=== PATIENT | female | born 1960 | race Caucasian/White ===

== ENCOUNTER 2018-09-18 15:49 | Emergency (ER) | payer OTHER ==
[2018-09-18 16:02] VITALS: BP 144/79
[2018-09-18] MEDS ORDERED: Tetan/Diph/Pertus SYR(Tdap)* 0.5 ML SYR(BOOSTRIX) use SYR IM ONE (16:24)
--- NOTE | 2018-09-18 16:26 | UC ---
Laceration HPI - HPI Summary HPI Summary: 58 y/o female presents to the urgent care c/o cutting her left ring finger w/ pruning naomi while cutting some plants at home around 1515pm. Pt reports bleeding stopped with pressure. She can move finger w/o any problem. Pt is not sure when was the last Tetanus vaccines. Pt denies any numbness or tingling sensation over the left finger or hand. Pt dnies fever, SOB, chest pain, abdominal pain, N/V/d. - History Of Current Complaint Chief Complaint: UCLaceration Stated Complaint: FINGER LAC Time Seen by Provider: 09/18/18 16:23 Hx Obtained From: Patient Laceration Location: Finger - left finger laceration w/ pruning naomi Mechanism Of Injury: Sharp Trauma Onset/Duration: Lasting Hours - 1 hr ago, Still Present Severity: Severe Pain Intensity: 8 Pain Scale Used: 0-10 Numeric Aggravating Factors: Movement, Other: - touch Related History: Dominant Hand Right - Allergies/Home Medications Allergies/Adverse Reactions: Allergies Allergy/AdvReac Type Severity Reaction Status Date / Time loracarbef [From Lorabid] Allergy Unknown Verified 09/18/18 16:02 Reaction Details PMH/Surg Hx/FS Hx/Imm Hx Previously Healthy: Yes - Pt denies PMHX Other History Of: Negative For: Anticoagulant Therapy - Surgical History Surgical History: Yes Surgery Procedure, Year, and Place: [facility] - Family History Known Family History: Positive: Diabetes, Respiratory Disease - PNA- daughter Negative: Cardiac Disease - Social History Occupation: Employed Full-time Lives: With Family Alcohol Use: Occasionally Substance Use Type: None Smoking Status (MU): Former Smoker Type: Cigarettes Have You Smoked in the Last Year: Yes When Did the Patient Quit Smoking/Using Tobacco: 5 days ago Household Exposure Type: Cigarettes - Immunization History Most Recent Tetanus Shot: not sure Hx Tetanus, Diphtheria Vaccination: No - not sure Review of Systems All Other Systems Reviewed And Are Negative: Yes Skin: Positive: Other - laceration to his distal ring finger with pruning naomi Eyes: Positive: Negative ENT: Positive: Negative Respiratory: Positive: Negative Cardiovascular: Positive: Negative Gastrointestinal: Positive: Negative Genitourinary: Positive: Negative Motor: Positive: Negative Neurovascular: Positive: Negative Musculoskeletal: Positive: Other: - left ring finger pain Neurological: Positive: Negative Psychological: Positive: Negative Is Patient Immunocompromised?: No Physical Exam - Summary Physical Exam Summary: Vital Signs Reviewed: Yes General: well developed, well nourished female sitting in the examining table w/ o any apparent distress Eye Exam: Normal Eyes: Positive: Conjunctiva Clear - PERRLA, EOMI, fundi grossly normal ENT: Positive: Normal ENT inspection, Hearing grossly normal, Pharynx normal, TMs normal Neck: Positive: Supple, Nontender, No Lymphadenopathy Respiratory: Positive: Chest non-tender, Lungs clear, Normal breath sounds, No respiratory distress Cardiovascular: Positive: RRR, No Murmur, Pulses Normal, Brisk Capillary Refill Abdomen Description: Positive: Nontender, No Organomegaly, Soft. Negative: CVA Tenderness (R), CVA Tenderness (L) Bowel Sounds: Positive: Present Musculoskeletal: Positive: Strength Intact, ROM Intact, No Edema Neurological: Positive: Alert, Muscle Tone Normal Psychological Exam: Normal Skin: Positive:ventral side of the left 4th distal phalanx with a semilunar superficial laceration about 1.0cm in size, non bleeding, no foreign body observed. mild tenderness to palpation, no ecchymosis around elbow. FROM of the left fingers and hand, sensation intact, capillary refill brisk, and pulses WNL. Triage Information Reviewed: Yes Vital Signs: Initial Vital Signs Temp 97.1 F 09/18/18 16:00 Pulse 74 09/18/18 16:00 Resp 16 09/18/18 16:00 BP 144/79 09/18/18 16:00 Pulse Ox 98 09/18/18 16:00 Laceration Repair - Laceration Repair 1 Description: Linear - semilunar laceration on the ventral side of the distal left 4th phalanx Laceration Size After Repair: Length (cm) - 1.0cm Modified For Repair: No Type Injection: Local Anesthesia Used: 1.0% Lido - 2 ml by digitsl block at the base to the left 4th phalanx Cleansing Completed Via Routine Prep: Yes Irrigation With Pressure Irrigation Device: Yes Closure Material: Sutures - 4 Closure Method: Single Layer Suture Of: Skin, SQ Suture Type: Nylon - 5.0 Laceration Course/Dx - Course/Dx Course Of Treatment: 58 y/o female presents to the urgent care c/o cutting her left ring finger w/ pruning naomi while cutting some plants at home around 1515pm. Pt reports bleeding stopped with pressure. She can move finger w/o any problem. Pt is not sure when was the last Tetanus vaccines. Pt denies any numbness or tingling sensation over the left finger or hand. Pt dnies fever, SOB , chest pain,abdominal pain, N/V/D. Hx obtained. Pt w/ ventral side of the left 4th distal phalanx with a semilunar superficial laceration about 1.0cm in size, non bleeding, no foreign body observed. FROM of the left phalanx on examination. LACERATION PROCEDURE NOTE: . Copious irrigation was done with saline by the nurse and the wound explored. There was no FB or deep structure injury noted. FROM of left forearm. procedure was explained and consent obtained, Timeout performed. The wound was anesthetized by digital block with 2 mL of 1% lido at the base of left 4th phalanx, with good anesthesia obtained. Sterile drape and prep were done. There were 4 sutures with 5.0 nylon type of suture. The length of the wound after closure was 1.0cm. No debridement done. Pt tolerated the procedure well without adverse effects. Neurovascular intact and FROM of left 4th finger. Tdap ordered and applied by nurse. Pt advised to f/u suture removal in 10-12 days and if any signs of infection develop to immediately return to the urgent care of PCP for further management and treatment. Pt's BP is elevated today advised to decrease salt in diet, monitor BP and f/u with PCP for further management. Pt understood and agreed and left the clinic ambulating A&Ox3. - Differential Dx - Laceration/Wound Differental Diagnoses: Avulsion, Laceration, Puncture Wound, Tendon Laceration - Diagnosis Provider Diagnosis: Laceration of left ring finger, Elevated BP without diagnosis of hypertension Discharge - Sign-Out/Discharge Documenting (check all that apply): Patient Departure - d/c home All imaging exams completed and their final reports reviewed: No Studies - Discharge Plan Condition: Stable Disposition: HOME Patient Education Materials: Care For Your Stitches (ED), Laceration (ED) Referrals: Velma Chapman MD [Primary Care Provider] - 1 Week Additional Instructions: 1-Please apply topical antibiotic over the wound. Keep wound clean and dry 2- F/u suture removal in 10-12 days days w/ your PCP or here at the urgent care. 3-Take Ibuprofen or Tylenol PO q6-8hrs prn for pain or swelling. 4- If you develop fever or redness around your finger please return to the Urgent care. 5- Your BP is elevated today. please decrease salt in your diet, monitor BP and if it continues to be elevated please f/u with your PCP for further management. - Billing Disposition and Condition Condition: STABLE Disposition: Home
[2018-09-18] MEDS ORDERED: Lidocaine 1%* 5 ML VIAL INJ ONE (16:47)
== END 2018-09-18 17:59 | disposition home or self-care (01) ==
LOC: UCEAST 15:49
DX: S61.215A Laceration without foreign body of left ring finger without damage to nail, initial encounter (principal); R03.0 Elevated blood-pressure reading, without diagnosis of hypertension; Z87.891 Personal history of nicotine dependence; Z88.8 Allergy status to other drugs, medicaments and biological substances; X58.XXXA Exposure to other specified factors, initial encounter; Y93.H2 Activity, gardening and landscaping; Y92.009 Unspecified place in unspecified non-institutional (private) residence as the place of occurrence of the external cause
CPT/HCPCS: 12001; 90471; 90715; 99211; G0463

== ENCOUNTER 2018-09-30 16:33 | Emergency (ER) | payer OTHER ==
[2018-09-30 16:40] VITALS: BP 138/68
--- NOTE | 2018-09-30 16:42 | UC ---
Laceration HPI - HPI Summary HPI Summary: 58 yo female presents for suture removal. She had 4 sutures placed to her left 4th finger on 09/18. Has had no issues. Denies redness, swelling, pain, or discharge. 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 Laceration Location: Finger Mechanism Of Injury: Sharp Trauma Onset/Duration: Sudden Onset Pain Intensity: 0 - Allergies/Home Medications Allergies/Adverse Reactions: Allergies Allergy/AdvReac Type Severity Reaction Status Date / Time loracarbef [From Lorabid] Allergy Unknown Verified 09/30/18 16:41 Reaction Details PMH/Surg Hx/FS Hx/Imm Hx - Additional Past Medical History Additional PMH: Allergies Other History Of: Negative For: Anticoagulant Therapy - Surgical History Surgical History: Yes Surgery Procedure, Year, and Place: [facility] - Family History Known Family History: Positive: Diabetes, Respiratory Disease - PNA- daughter Negative: Cardiac Disease - Social History Occupation: Employed Full-time Lives: With Family Alcohol Use: Occasionally Substance Use Type: None Smoking Status (MU): Former Smoker Type: Cigarettes Have You Smoked in the Last Year: Yes When Did the Patient Quit Smoking/Using Tobacco: 5 days ago Household Exposure Type: Cigarettes - Immunization History Most Recent Tetanus Shot: not sure Hx Tetanus, Diphtheria Vaccination: No - not sure Review of Systems All Other Systems Reviewed And Are Negative: Yes Constitutional: Positive: Negative Skin: Positive: Other - Sutures in place left 4th finger Respiratory: Positive: Negative Cardiovascular: Positive: Negative Neurovascular: Positive: Negative Neurological: Positive: Negative Psychological: Positive: Negative Physical Exam - Summary Physical Exam Summary: GENERAL: NAD. WDWN. No pain distress. SKIN: LEFT 4th finger pad with [address]. Wound well approximated without erythema, edema, or drainage. NTTP CHEST: No accessory muscle use. Breathing comfortably and in no distress. CV: Pulses intact. Cap refill <2seconds NEURO: Alert. PSYCH: Age appropriate behavior. Triage Information Reviewed: Yes Vital Signs: Initial Vital Signs Temp 98.6 F 09/30/18 16:38 Pulse 81 09/30/18 16:38 Resp 16 09/30/18 16:38 BP 138/68 09/30/18 16:38 Pulse Ox 99 09/30/18 16:38 Vital Signs Reviewed: Yes Laceration Course/Dx - Course/Dx Course Of Treatment: Four sutures removed without difficulty. - Diagnosis Provider Diagnosis: Visit for suture removal Discharge - Sign-Out/Discharge Documenting (check all that apply): Patient Departure All imaging exams completed and their final reports reviewed: No Studies - Discharge Plan Condition: Stable Disposition: HOME Patient Education Materials: Stitches Removal (ED) Referrals: Velma Chapman MD [Primary Care Provider] - Additional Instructions: If you develop a fever, shortness of breath, chest pain, new or worsening symptoms - please call your PCP or go to the ED. Your blood pressure was high at todays visit. Please see your primary provider within 4 weeks for recheck and re-evaluation. - Billing Disposition and Condition Condition: STABLE Disposition: Home - Attestation Statements Provider Attestation: I was available for consult. This patient was seen by the LILIAN. The patient was not presented to, seen by, or examined by me. -Alexander
== END 2018-09-30 17:00 | disposition home or self-care (01) ==
LOC: UCEAST 16:33
DX: S61.215D Laceration without foreign body of left ring finger without damage to nail, subsequent encounter (principal); Z87.891 Personal history of nicotine dependence; Z88.8 Allergy status to other drugs, medicaments and biological substances; X58.XXXD Exposure to other specified factors, subsequent encounter